=== PATIENT | female | born 1985 | race Caucasian/White ===

== ENCOUNTER 2016-05-28 03:36 | Inpatient (IN) | payer OTHER ==
[~2016-05-28] VITALS: Ht 165.1 cm; Wt 104.0 kg
[~2016-05-28 03:36] MED LIST: IBUP600T44 PO
[2016-05-31 08:42] VITALS: Ht 165.1 cm; Wt 104.0 kg
--- NOTE | 2016-05-31 09:32 | HISTORY & PHYSICAL EXAMINATION ---
DATE OF ADMISSION: 05/31/2016 CHIEF COMPLAINT: Scheduled induction of labor. HISTORY OF PRESENT ILLNESS: The patient is a 31-year-old G3, P2-0-0-2 at 40 weeks and 3 days of gestation who is presenting today for scheduled induction of labor for postdates. She has been feeling mild contractions since this morning. They have been every 2-4 minutes . She rates the pain 2/10. No leakage of fluid or vaginal bleeding. She reports good movements. She denies headache, change in vision, nausea or vomiting. Her has been uncomplicated except obesity. PAST MEDICAL HISTORY: Unremarkable, migraines. PAST SURGICAL HISTORY: Left lower leg surgery in 2009. SOCIAL HISTORY: The patient denies smoking, alcohol or drug use. GYNECOLOGIC HISTORY: The patient has a history of chlamydia 9 years ago, none since then. No history of herpes or gonorrhea. OBSTETRICAL HISTORY: This is her third . She had spontaneous vaginal delivery in 2011 and 2013. Both were uncomplicated. MEDICATIONS: vitamins. ALLERGIES: No known drug allergies. LABS: Blood type is O positive, antibody screen negative, rubella positive, RPR nonreactive, hepatitis B surface antigen negative, chlamydia and gonorrhea cultures were negative. Glucola was 110 mg per deciliter. H\T\H is 12/35, platelets 157. GBS culture was negative on 05/01/2016. PHYSICAL EXAMINATION: GENERAL: The patient is alert, oriented x3, not in acute distress. VITAL SIGNS: Stable. Afebrile. CARDIOVASCULAR SYSTEM: S1, S2, RRR. LUNGS: Clear to auscultation bilaterally. ABDOMEN: Soft, gravid, [place] 8-9 pounds. EXTREMITIES: Nontender, no edema. PELVIC EXAMINATION: Her cervix is 1-2 cm on the external os, internal os unreachable, thick, posterior and -5. Unable to feel presenting part. Bedside ultrasound was done and confirmed vertex presentation. heart rate 140s, category 1. [place] mild contractions every 3-4 minutes. ASSESSMENT AND PLAN: The patient is a 31-year-old G3, P2-0-0-2 at 40 weeks and 3 days of gestation presenting for scheduled induction of labor for postdates. Vital signs stable, afebrile. GBS negative. No medical problems. heart rate reassuring. Plan is admit her, start IV fluids and cervical ripening with Cervidil. She understands the risks and benefits of using prostaglandins and all questions were answered. LIZA
[2016-05-31 09:37] LABS: HEMATOCRIT 38.7 % (37-47); MEAN CORPUSCULAR HEMOGLOBIN 29.3 pg (25-34); MEAN CORPUSCULAR HGB CONC 33.3 g/dl (32-36); MEAN PLATELET VOLUME 9.9 fL (7.4-10.4); PLATELET COUNT 140 K/uL (130-400)
[2016-05-31] MEDS ORDERED: LACTATED RINGER'S 1000ML 1,000 ML IV PRN (09:45)
[2016-05-31] MEDS ORDERED: DINOPROSTONE 10 MG INSERT PV ONE (09:45)
[2016-05-31] MEDS ORDERED: EpHEDrine SULFATE INJ 50 MG/ML AMP ONE (16:28)
[2016-05-31] MEDS ORDERED: BUPIVACAINE 0.25% 30 ML VIAL ONE (16:28)
[2016-05-31] MEDS ORDERED: FENTANYL 2MCG/ML ROPIV 1.25MG/ML 100ML BAG EPI ONE (16:29)
[2016-05-31] MEDS ORDERED: FENTANYL CITRATE INJ 50 MCG/1 ML 2 ML VIAL ONE (16:30)
[2016-05-31] MEDS ORDERED: LACTATED RINGER'S 1000ML 500 ML IV PRN (17:24)
[2016-05-31] MEDS ORDERED: NALOXONE HCL INJ 1 MG in SODIUM CHLORIDE 0.9% 1000ML 1,000 ML IV PRN (17:24)
[2016-05-31] MEDS: LACTATED RINGER'S 1000ML 1,000 ML IV SCH ×2 (17:28→21:50)
[2016-05-31] MEDS ORDERED: NALBUPHINE HCL INJ 10 MG/ML AMP IV PRN (17:30)
[2016-05-31] MEDS ORDERED: NALOXONE HCL 0.4 MG/1 ML VIAL/CARP IV PRN (17:30)
[2016-05-31] MEDS ORDERED: DiphenhydrAMINE HCL 50 MG/ML VIAL IV PRN (17:30)
[2016-05-31] MEDS ORDERED: EpHEDrine SULFATE INJ 50 MG/ML AMP IV PRN (17:30)
[2016-05-31] MEDS ORDERED: FENTANYL 2MCG/ML ROPIV 1.25MG/ML 100ML BAG EPI PRN (17:30)
[2016-05-31] MEDS ORDERED: OXYTOCIN 30 UNITS/500ML NSS IV ONE (22:24)
[2016-05-31] MEDS ORDERED: DIPHTHERIA/TETANUS/PERTUSSIS 0.5 ML SYR/VIAL IM. ONE (23:15)
[2016-05-31] MEDS ORDERED: OXYCODONE/ACETAMINOPHEN 5-325 TAB PO PRN (23:15)
[2016-05-31] MEDS ORDERED: HYDROCORTISONE ACETATE 25 MG SUPP PR PRN (23:15)
[2016-05-31] MEDS ORDERED: LANOLIN OINT EXT PRN ×2 (23:15)
[2016-05-31] MEDS ORDERED: OXYTOCIN 30 UNITS/500ML NSS IV PRN (23:15)
[2016-05-31] MEDS ORDERED: ACETAMINOPHEN 325 MG TAB PO PRN (23:15)
[2016-05-31] MEDS ORDERED: BENZOCAINE 20% AER SPR 82.5 GM CAN EXT PRN (23:15)
[2016-05-31] MEDS ORDERED: SUPERCREAM 0.870 % 15GM JAR EXT PRN (23:15)
[2016-05-31] MEDS ORDERED: ACETAMINOPHEN/CODEINE 300/30MG TAB PO PRN (23:15)
--- NOTE | 2016-06-01 00:11 | Anesthesia Procedure Note ---
Anesthesia Epidural Removal Nt Date & Time Jun 01, 2016 at 00:10 Vital Signs Pain Intensity: 3.0 Notes Mental Status: alert / awake / arousable, participated in evaluation Nausea / Vomiting: adequately controlled Pain: adequately controlled Airway Patency, RR, SpO2: stable & adequate BP & HR: stable & adequate Hydration State: stable & adequate Neuraxial Anesthesia: was administered, sensory block is resolving Anesthetic Complications: no major complications apparent, pt satisfied with anesthetic care Epidural: removed without complications, with tip intact
--- NOTE | 2016-06-01 02:28 | DELIVERY SUMMARY ---
DATE OF OPERATION: 05/31/2016 TIME OF DELIVERY: 2256 DELIVERY OF PLACENTA: 2300 DELIVERY NOTE: The patient is a 31-year-old 3 para 2 at 40 weeks and 3 days gestation, who was admitted to labor and delivery on the morning of 05/31/2016, for a scheduled induction of labor secondary to postdates. She received Cervidil on admission along with an epidural for anesthesia. Spontaneous rupture of membranes occurred at 0 with clear amniotic fluid noted. She reached complete dilation at 2212 and pushed to delivery at 2256. The patient delivered a viable male in the occiput anterior position. Nuchal cord x1 was reduced at delivery. The baby was delivered without complication and was placed on patient's abdomen. Delayed cord clamping was performed. Cord was then clamped x2 and cut. Apgars were 8 at one minute and 9 at five minutes. Please see nursing notes for further baby assessment. Cord blood was then obtained and an intact placenta with a 3-vessel cord was delivered at 2300. Oxytocin infusion was then begun. The lower uterine segment and vagina was cleared of any blood clot and debris. Exploration of the perineum noted no lacerations. Excellent hemostasis was noted. Estimated blood loss was 300 mL. All sponge and instrument counts were found to be correct x2. The patient tolerated the delivery well and was in recovery with stable vital signs. I attest to the content of the Intraoperative Record and any orders documented therein. Any exceptio ns are noted below.
[2016-06-01 02:30] VITALS: BP 137/81; PULSE 105; TEMP 36.9
[2016-06-01 05:20] VITALS: BP 126/79; PULSE 87; TEMP 36.9
[2016-06-01] MEDS: IBUPROFEN 600 MG TAB PO PRN ×2 (05:23→12:42)
[2016-06-01 07:00] LABS: HEMATOCRIT 34.6 % (37-47)
[2016-06-01 07:35] VITALS: BP 114/78; PULSE 89; TEMP 36.7
[2016-06-01] MEDS: ACETAMINOPHEN/CODEINE 300/30MG TAB PO PRN (07:42)
[2016-06-01] MEDS: PRENATAL VITAMIN TAB PO SCH (07:42)
[2016-06-01] MEDS: DOCUSATE SODIUM 100 MG CAP PO SCH ×2 (07:42→19:43)
[2016-06-01] MEDS: FERROUS SULFATE 325 MG TAB PO SCH (07:42)
--- NOTE | 2016-06-01 08:56 | OB/GYN Progress Note ---
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 Patient is seen and examined. She feels well, no complaints. Ambulating without dizziness Voiding without difficulty Tolerating regular diet with out N&V Bleeding is minimal No fever/ chills/ CP/ SOB/ N&V/ Leg pain Breast feeding without problems Date Time Temp Pulse Resp B/P Pulse Ox O2 Delivery O2 Flow Rate FiO2 06/01/16 05:20 36.9 87 20 126/79 Room Air 06/01/16 02:30 Room Air 06/01/16 02:30 36.9 105 20 137/81 Room Air Test 05/31/16 09:20 06/01/16 06:32 White Blood Count 10.50 Red Blood Count 4.40 Hemoglobin 12.9 11.8 L Hematocrit 38.7 34.6 L Mean Corpuscular Volume 88.0 Mean Corpuscular Hemoglobin 29.3 Mean Corpuscular Hemoglobin Concent 33.3 RDW Standard Deviation 45.2 RDW Coefficient of Variation 14.1 Platelet Count 140 Mean Platelet Volume 9.9 PE: General: Alert, orientedx3, NAD Abd: soft, NT, fundus firm, below Umbilicus Perineum intact, Lochia rubra minimal Ext; NT, no edema AP: 31 yo s/p , ppd# 1 VSS Afebrile doing well Continue routine care All questions were answered D/C home tomorrow
[2016-06-01 12:30] VITALS: BP 114/79; PULSE 96
[2016-06-01 16:30] VITALS: BP 115/78; PULSE 89; TEMP 36.7
[2016-06-01] MEDS ORDERED: BISACODYL 5 MG TABEC PO SCH (20:00)
[2016-06-02] VITALS: BP 119/76; PULSE 69; TEMP 36.4
[2016-06-02] MEDS: IBUPROFEN 600 MG TAB PO PRN (05:31)
[2016-06-02] MEDS: ACETAMINOPHEN/CODEINE 300/30MG TAB PO PRN (05:31)
[2016-06-02] MEDS ORDERED: BISACODYL 10 MG SUPP PR PRN (07:00)
[2016-06-02 07:22] LABS: HEMATOCRIT 34.5 % (37-47); MEAN CELL VOLUME 89.8 fL (80-100); MEAN CORPUSCULAR HEMOGLOBIN 30.2 pg (25-34); MEAN CORPUSCULAR HGB CONC 33.6 g/dl (32-36); MEAN PLATELET VOLUME 10.2 fL (7.4-10.4); PLATELET COUNT 119 K/uL (130-400); RED BLOOD COUNT 3.84 M/uL (4.2-5.4); WHITE BLOOD COUNT 8.21 K/uL (4.8-10.8)
[2016-06-02 07:40] VITALS: BP 112/70; PULSE 77; TEMP 36.8; O2SAT 97
--- NOTE | 2016-06-02 07:46 | OB/GYN Progress Note ---
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 Patient is seen and examined. She feels well, no complaints. Likes to go home Ambulating without dizziness Voiding without difficulty Tolerating regular diet with out N&V Bleeding is minimal No fever/ chills/ CP/ SOB/ N&V/ Leg pain Breast feeding without problems Discussed contraception. Her is going to get vasectomy. They will use +condoms till then. Date Time Temp Pulse Resp B/P Pulse Ox O2 Delivery O2 Flow Rate FiO2 06/02/16 00:00 Room Air 06/02/16 00:00 36.4 69 20 119/76 Room Air 06/01/16 16:30 Room Air 06/01/16 16:30 36.7 89 18 115/78 Room Air 06/01/16 12:30 96 18 114/79 Room Air Test 05/31/16 09:20 06/01/16 06:32 06/02/16 07:04 White Blood Count 10.50 8.21 Red Blood Count 4.40 3.84 L Hemoglobin 12.9 11.8 L 11.6 L Hematocrit 38.7 34.6 L 34.5 L Mean Corpuscular Volume 88.0 89.8 Mean Corpuscular Hemoglobin 29.3 30.2 Mean Corpuscular Hemoglobin Concent 33.3 33.6 RDW Standard Deviation 45.2 47.2 H RDW Coefficient of Variation 14.1 14.4 Platelet Count 140 119 L Mean Platelet Volume 9.9 10.2 PE: General: Alert, orientedx3, NAD Abd: soft, NT, fundus firm, below Umbilicus Perineum intact, Lochia rubra minimal Ext; NT, no edema AP: 31 yo s/p , ppd# 2 VSS Afebrile doing well Continue routine care All questions were answered Instructions were given when to call D/C home , f/u in office
[2016-06-02] MEDS ORDERED: MTR600X PO (07:47)
--- NOTE | 2016-06-02 07:48 | Discharge Instructions ---
Discharge Instructions Date of Service Jun 02, 2016. Admission Reason for Admission: Induction Discharge Discharge Diagnosis / Problem: Discharge Goals Goal(s): Routine recovery after delivery Medications Continue Dispensed Medications: lansinoh Activity Recommendations Activity Limitations: as noted below Lifting Limitations: gradually increase as tolerated Exercise/Sports Limitations: until after follow-up appointment May Resume Sexual Activity: after follow-up appointment Shower/Bathe: no limitations Driving or Machine Use: ACTIVITY RECOMMENDATIONS: * Gradual return to full activity over the next 2-3 weeks. * No lifting - nothing heavier than baby over the next 2-3 weeks. * Do not engage in vigorous exercise, sexual activity or sports until cleared by your physician. * Do not drive or operate any motorized equipment until cleared by your physician. * You may shower/bathe daily. BREAST CARE: If you are not breast feeding: * Wear a supportive bra 24 hours a day for one to two weeks. * Avoid stimulating your breasts and nipples as much as possible during the first few weeks after delivery. * When taking a shower, have the warm water hit your back, not breasts. * When your breasts feel full, apply ice packs. Usually three to four times a day helps ease the discomfort. * Take a mild pain medication (Tylenol/Motrin) when you are uncomfortable. If breast feeding: * Use breast milk to lubricate nipples. Lansinoh cream may be used for sore nipples. You do not need to remove cream prior to breast feeding. If using a different brand of cream, check the label for directions regarding removal of cream prior to nursing. * Wear a supportive bra. * If having problems with breasts or breast feeding, call a product/industry consultant or your health care provider. EPISIOTOMY CARE: After delivery, if you have an episiotomy (stitches), the following steps will ease discomfort and aid healing. * For the first 24 hours after delivery, place ice packs next to your episiotomy to help reduce swelling. * After the first 24 hour-period, sitz baths, either portable or in the tub, are suggested. A shower with a shower arm sprayed over the episiotomy may be comforting. * Mena care should be done after each voiding and bowel movement. Squirt warm water from a plastic bottle over the perineum (region of the body between the anus and urinary opening) and pat dry. * Use Dermoplast to ease discomfort. Shake container. [place] directly over the episiotomy. * Place a Tucks on a clean sanitary pad next to your episiotomy. OVER THE COUNTER MEDICATION: * For discomfort or pain, you may use Acetaminophen (Tylenol), Ibuprofen (Advil ), or Naproxen (Aleve) following the package directions. * For constipation you may use Colace following the package directions. SPECIAL CARE INSTRUCTIONS: When you are discharged from the hospital, it is important for you to follow the instructions listed below: * During the first week at home, you should be able to care for yourself and your baby. In addition, the usual light household activities are encouraged. * Limit your activities to the way you feel. Do not try to clean the house or move furniture. Be sensible. * If you actively engage in sports and have done so up until the time of your delivery, you may resume these activities as soon as you feel able. This may take up to one month or even longer. Use good judgment. * Continue to take your vitamins for at least six weeks after the of your baby. * Your diet need not be limited unless you were on a special diet before your delivery. Breast-feeding mothers need around 2500 calories per day and at least 64-80 ounces of fluid per day (8 to 10 glasses). * You should eat foods from the four major food groups. Crash diets or fad diets are to be avoided. Eating lean meats, fresh fruits and vegetables, low-fat dairy products, high fiber foods and a regular exercise program, will help you get back to your pre- weight without putting your health at risk. * Constipation is sometimes a problem after delivery. Take a mild laxative as needed. If breast feeding, Milk of Magnesia is acceptable to use. You may use a suppository or Fleets enema if no episiotomy. * A daily shower or tub bath is suggested. Be sure to thoroughly and gently dry the perineum. * A bloody vaginal discharge will usually continue until around four weeks post . A small amount of bleeding may continue for as long as six weeks. Vaginal discharge changes from the bright red bleeding after delivery to pink then brownish and finally yellowish-pink before becoming white and disappearing. * Bleeding may increase with activity. Your first period may come in 4-8 weeks. If you are breast feeding, your period may be delayed even longer. * [place] (sex) can begin whenever both you and your partner feel comfortable and do not have any form of genital infection. It is recommended that you wait until after your return appointment and discuss with your physician. If you have questions, please talk to your health care practitioner. A condom should be used to prevent infection and . * Foreplay, gentle intercourse and lubrication is very important the first several times to prevent pain. A water-based lubricant such as K-Y jelly or Astroglide may be used. * Tampons may be used six weeks after delivery. * Douching should be avoided for 6 weeks after delivery. * If you have RH negative blood and your baby is RH positive, you will receive RHOGAM by injection prior to discharge. The nurse will give you a card to keep with you that has the date and place that you received RHOGAM after delivery. * During your care, you had a Rubella screen done to check for the presence of rubella antibodies in your blood. If your test was negative, you will receive a Rubella vaccine prior to discharge. This vaccine may cause a fever, soreness at the injection site and flu-like symptoms. If these symptoms persist, notify your health care practitioner. is not advised for three months after a Rubella vaccine. There is a higher chance of having a baby with defects if conceived within three months of getting the vaccine. * If you were discharged 24 hours from delivery or before 48 hours: Visiting nurses will come to your home 48 hours after discharge to assess you and your baby. The visiting nurse will meet with you while you are in the hospital to arrange a time and get directions to your home. * Verbalizes understanding of car seat law as reviewed with patient nursing. * Car Seat hand-out given and reviewed with patient by nursing. * Shaken baby information reviewed with patient by nursing. Call you doctor if: * Heavy bleeding (saturating several pads an hour) or passing clots the size of your fist. * A fever >101 degrees F (38.3 degrees C) on two occasions four hours apart and/or chills. * Unusual pain in the pelvic or vaginal areas. * "Baby Blues" lasting longer than two weeks. If you have any questions or concerns, call your health care practitioner at . FOLLOW-UP VISIT: * Please call the office at to schedule a 6 week examination. It is important you keep this appointment. * It is important for you to make arrangements for either yearly or twice yearly check-ups thereafter. . Current Hospital Diet Patient's current hospital diet: Regular OB Diet Discharge Diet Recommended Diet: Regular Diet Pending Studies Studies pending at discharge: no Medical Emergencies . Who to Call and When: Medical Emergencies: If at any time you feel your situation is an emergency, please call 911 immediately. . Non-Emergent Contact Non-Emergency issues call your: Surgeon Call Non-Emergent contact if: temperature is above 100.5, your pain is not controlled, your pain is worsening, wound has increased drainage . . "Provider Documentation" section prepared by Mireya Mayo. . VTE Core Measure Inpt VTE Proph given/why not?: Treatment not indicated
[2016-06-02] MEDS: DOCUSATE SODIUM 100 MG CAP PO SCH (08:34)
[2016-06-02] MEDS: PRENATAL VITAMIN TAB PO SCH (08:35)
[2016-06-02] MEDS: FERROUS SULFATE 325 MG TAB PO SCH (08:35)
[2016-06-02 12:55] VITALS: BP_DIAS 70; PULSE 77; TEMP 36.8
== END 2016-06-02 13:08 | disposition home or self-care (01) | DRG 775 ==
LOC: C.LD 05-31 07:37 → C.OBG 06-01 02:06
PROVIDERS: ADMIT Obstetrics & Gynecology; ATTEND Obstetrics & Gynecology
PROC: 10E0XZZ Delivery of Products of Conception, External Approach (ICD-10-PCS; principal; 2016-05-31)
PROC: 3E033VJ Introduction of Other Hormone into Peripheral Vein, Percutaneous Approach (ICD-10-PCS; principal; 2016-05-31)
DX: O48.0 Post-term pregnancy (principal); Z3A.40 40 weeks gestation of pregnancy; Z37.0 Single live birth; O69.82X0 Labor and delivery complicated by other cord entanglement, without compression, not applicable or unspecified

== ENCOUNTER 2022-02-14 13:38 | Inpatient (IN) ==
[2022-02-14] MEDS ORDERED: DINOPROSTONE 10 MG INSERT PV ONE (14:54)
[2022-02-14] MEDS ORDERED: OXYTOCIN 30 UNITS/500 ML BAG IV PRN (14:54)
[2022-02-14] MEDS ORDERED: LIDOCAINE 1% LOCAL 20 ML VIAL INFIL PRN (14:54)
--- NOTE | 2022-02-14 15:07 | History & Physical Report ---
Date of Service February 14, 2022 Assessment & Plan (1) Gestational diabetes requiring insulin: Plan: 36-year-old -0-0-3 at 39 weeks and 1 day gestation who was scheduled for induction of labor at term for GDM A2, on insulin, Vital signs stable afebrile, heart rate reassuring, GBS negative, Cervix unfavorable presenting part high, confirmed vertex with ultrasound, Discussed cervical ripening with Cervidil and what to expect, All questions were answered. (2) Obesity affecting in third trimester, antepartum: Admission and Anticipated Discharge Date Admission Date: February 14, 2022 History of Present Illness Primary Care Provider: [facility] Patient is an 36-year-old -0-0-3 at 39 weeks and 1 days of gestation who was scheduled for induction at term for GDM A2, on insulin. She has no complaints. She denies contractions, leakage of fluid, vaginal bleeding. She reports good movements. Her has been uncomplicated except above and obesity. GBS negative. Last growth ultrasound was within normal limits. 3470 gr on 01/30 done by OSORIO. 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 Remote h/o Chlamydia 12 years ago, treated ELLIE negative Physical Exam Constitutional: well developed, well nourished and + obese Gastrointestinal (Abdomen): normal bowel sounds, soft, nontender, no hepatosplenomegaly (gravid) bed side us: vertex, FHR 140's Genitourinary: normal external appearance OB Exam Abdomen: + vertex Manual OB Exam: + cervical dilation fingertip, + cervical effacement 30% and + station high OB Exam Monitor Tracing: + external uterine monitor used and + category I Results & Data ([facility]) Vital Signs (Past 12 Hours) Vital Signs Temp Pulse Resp BP 02/14/22 14:47 92 H 119/77 02/14/22 14:21 37.3 C 94 H 20 144/83 H
[2022-02-14 15:19] LABS: Hematocrit (blood only) 32.3 % (34.1-44.9); Hemoglobin 11.1 g/dl (12.0-16.0); Mean Corpuscular Hemoglobin 28.2 pg (25.0-34.0); Mean Corpuscular Hgb Conc 34.4 g/dL (32.0-36.0); Mean Corpuscular Volume 82.2 fL (80.0-100.0); Mean Platelet Volume 9.5 fL (9.4-12.3); Platelet Count 143 K/uL (130-400); RDW Coefficient of Variation 14.6 % (11.5-14.5); RDW Standard Deviation 43.1 fL (36.4-46.3); Red Blood Count 3.93 M/uL (3.93-5.22); White Blood Count 7.07 K/ul (4.8-10.8)
[2022-02-14 15:38] LABS: Alanine Aminotransferase 8 U/L (7-52); Albumin Globulin Ratio 1.3 (0.9-2); Albumin Level 3.4 gm/dl (3.4-5.0); Alkaline Phosphatase 111 U/L (34-104); Anion Gap 7 (3-11); Aspartate Aminotransferase 11 U/L (13-39); BUN Creatinine Ratio 12.8 (10-20); Bilirubin,Total 0.3 mg/dl (0.2-1.0); Blood Urea Nitrogen 6 mg/dl (6-23); Calcium 8.4 mg/dl (8.5-10.1); Carbon Dioxide 21 mmol/L (21-32); Chloride 108 mmol/L (98-107); Est GFR (African American) 149.4 ml/min; Est GFR (Non-African American) 128.9 ml/min; Globulin 2.6 gm/dl (2.5-4.0); Glucose 118 mg/dl (70-99(Fasting)); Potassium 3.7 mmol/L (3.5-5.1); Sodium 136 mmol/L (136-145)
[2022-02-14] MEDS: LACTATED RINGER'S 1,000 ML IV PRN ×2 (18:46→21:05)
--- NOTE | 2022-02-14 20:35 | Obstetrical Progress Note ---
Date of Service February 14, 2022 Assessment & Plan Admission and Anticipated Discharge Date Admission Date: February 14, 2022 Subjective Patient started to have regular ctxs, q 1-2 min, feesl them as uncomfortable, pain 5/10 IVF bolus did not help FHR categ I VE; Cervidil is removed, cervix 2 cm/ 30%/ -4, posterior Continue to monitor Results & Data ([facility]) Vital Signs (Past 12 Hours) Vital Signs Temp Pulse Resp BP 02/14/22 19:08 37.2 C 86 18 122/80 02/14/22 18:24 18 02/14/22 18:24 18 02/14/22 14:47 92 H 119/77 02/14/22 14:21 37.3 C 94 H 20 144/83 H
[2022-02-14] MEDS ORDERED: BUTORPHANOL TARTRATE 1 MG/ML VIAL IV PRN (20:53)
[2022-02-15] MEDS: miSOPROStoL 50 MCG TAB PO SCH ×3 (03:20→08:07)
[2022-02-15] MEDS ORDERED: OXYTOCIN 30 UNITS/500 ML BAG IV PRN ×2 (10:14→16:05)
[2022-02-15] MEDS ORDERED: Nursing to Pharmacy Communication SCH (10:30)
[2022-02-15] MEDS: LACTATED RINGER'S 1,000 ML IV PRN ×2 (10:50→14:30)
[2022-02-15] MEDS ORDERED: LIDOCAINE 2%/EPINEPHRINE 1:200,000 20 ML SDV ONE (11:14)
[2022-02-15] MEDS ORDERED: fentaNYL citrate 100 MCG/2 ML VIAL ONE (11:14)
[2022-02-15] MEDS ORDERED: fentaNYL 2MCG/ML ROPIVACAINE 1.25MG/ML 100 ML BAG EPI ONE (11:14)
[2022-02-15] MEDS ORDERED: BUPIVACAINE 0.25% 30 ML VIAL ONE (11:14)
[2022-02-15] MEDS ORDERED: SODIUM CHLORIDE 0.9% INJ 10 ML VIAL ONE (11:14)
[2022-02-15] MEDS ORDERED: ePHEDrine sulfate 50 MG/ML AMP ONE (11:14)
--- NOTE | 2022-02-15 11:17 | Anesthesiology Consultation ---
Date of Service February 15, 2022 Assessment & Plan (1) Encounter for pre-operative examination: Chart Review Chart Review: Patient NOT seen in Pre Admission Testing and Acceptable Risk for Labor Epidural Consults Requested none History Height/Weight Height: 5 ft 5 in Weight: 108.409 kg Allergies Allergy/AdvReac Type Severity Reaction Status Date / Time No Known Allergies Allergy Unverified 02/14/22 14:25 Medications Home Medications Medication Instructions Recorded Confirmed Last Taken prenat.vits,jacky,vcs-eggs-[id number] 1 tab PO DAILY 02/14/22 02/14/22 Unknown Active Medications Generic Name Dose Route Start Last Admin Trade Name Freq PRN Reason Stop Dose Admin Lactated Ringer's 1,000 mls @ 150 mls/hr 02/14/22 14:54 02/15/22 10:50 Lr IV 02/16/22 14:53 150 mls/hr .[id number] PRN Administration L&D Protocol Protocol Oxytocin 30 units in 500 mls @ 2 mls/hr 02/15/22 10:14 02/15/22 10:51 Pitocin IV 02/17/22 10:13 0.12 units/hr .Q24H PRN 2 mls/hr Labor Induction/Augmentation Administration Protocol 0.12 UNITS/HR Past Medical History Medical History Fracture of left lower leg 2009 Gestational diabetes mellitus (GDM) Migraine Normal spontaneous vaginal delivery 05/31/16 Normal spontaneous vaginal delivery 09/02/13 Normal spontaneous vaginal delivery 05/10/11 Obesity affecting in third trimester, antepartum Past Family History Family History Grandmother (Maternal) Diabetes Grandfather (Maternal) Hypertension Father Hypertension Hyperlipidemia Ascending aortic aneurysm Mother Asthma Social History Smoking Status: Former smoker Hx Alcohol Use: No Hx Substance Use: No Physical Exam Vital Signs Last Vital Signs Temp 98.8 F 02/15/22 10:52 Pulse 81 02/15/22 10:52 Resp 20 02/15/22 10:52 BP 113/61 02/15/22 10:52 Testing Laboratory Results 02/14/22 15:04 02/14/22 15:04 Blood Type O Positive 02/14/22 15:08 Antibody Screen NEGATIVE 02/14/22 15:08 02/15/22 02/15/22 02/15/22 09:03 05:02 00:19 POC Glucose 123 H 77 76
[2022-02-15] MEDS ORDERED: ePHEDrine sulfate 50 MG/ML AMP IV PRN (11:19)
[2022-02-15] MEDS ORDERED: NALOXONE HCL 1 MG in SODIUM CHLORIDE 0.9% 1000ML 1,000 ML IV PRN (11:19)
[2022-02-15] MEDS ORDERED: fentaNYL 2MCG/ML ROPIVACAINE 1.25MG/ML 100 ML BAG EPI PRN (11:19)
[2022-02-15] MEDS ORDERED: NALBUPHINE HCL INJ 10 MG/ML AMP IV PRN (11:19)
[2022-02-15] MEDS ORDERED: diphenhydrAMINE 50 MG/ML VIAL IV PRN (11:19)
[2022-02-15] MEDS ORDERED: NALOXONE HCL 0.4 MG/1 ML VIAL/CARP IV PRN (11:19)
[2022-02-15] MEDS ORDERED: miSOPROStoL 200 MCG TAB ONE (15:41)
[2022-02-15] MEDS ORDERED: METHYLERGONOVINE MALEATE 0.2 MG/ML AMP ONE (15:42)
--- NOTE | 2022-02-15 15:43 | Labor Progress Brief Note ---
Date of Service February 15, 2022 Assessment & Plan (1) Gestational diabetes requiring insulin: Plan: Pt doing well FHr; CAT1 Ctx: 2-3 mins VE; 9/100/=1 AROM with Amnio hook- clear anticipate VD Admission and Anticipated Discharge Date Admission Date: February 14, 2022 Results & Data ([facility]) Vital Signs (Past 12 Hours) Vital Signs Temp Pulse Resp BP Pulse Ox 02/15/22 15:39 82 99 02/15/22 15:34 81 98 02/15/22 15:29 99 H 98 02/15/22 15:24 76 96 02/15/22 15:19 97 02/15/22 15:19 83 02/15/22 15:19 76 109/73 02/15/22 15:14 76 95 02/15/22 15:09 75 97 02/15/22 15:00 20 02/15/22 15:00 20 02/15/22 14:30 20 02/15/22 14:30 20 02/15/22 15:06 75 102/69 02/15/22 15:04 78 97 02/15/22 14:59 83 97 02/15/22 14:54 80 96 02/15/22 14:49 97 02/15/22 14:49 81 02/15/22 14:49 82 117/79 02/15/22 14:44 80 96 02/15/22 14:39 75 96 02/15/22 14:34 78 112/73 96 02/15/22 14:29 83 97 02/15/22 14:26 76 94 02/15/22 14:24 75 96 02/15/22 14:21 83 94 02/15/22 14:19 96 02/15/22 14:19 76 02/15/22 14:19 80 112/70 02/15/22 14:14 80 95 02/15/22 14:11 80 94 02/15/22 14:09 77 94 02/15/22 14:00 20 02/15/22 14:00 20 02/15/22 14:04 77 114/79 97 02/15/22 13:59 81 96 02/15/22 13:54 82 95 02/15/22 13:51 73 94 02/15/22 13:49 76 95 02/15/22 13:50 75 107/72 02/15/22 13:44 78 96 02/15/22 13:30 20 02/15/22 13:30 36.8 C 20 02/15/22 13:39 75 97 02/15/22 13:36 86 93 02/15/22 13:35 75 114/75 02/15/22 13:34 74 96 02/15/22 13:29 75 95 02/15/22 13:26 80 94 02/15/22 13:24 79 95 02/15/22 13:21 80 108/63 02/15/22 13:19 81 96 02/15/22 13:17 85 94 02/15/22 13:14 78 93 02/15/22 13:12 79 94 02/15/22 13:09 76 95 02/15/22 13:04 87 110/64 96 02/15/22 12:59 80 97 02/15/22 12:54 88 97 02/15/22 12:49 96 02/15/22 12:49 84 02/15/22 12:49 85 109/67 02/15/22 12:46 78 94 02/15/22 12:44 79 94 02/15/22 12:39 75 96 02/15/22 12:40 74 94 02/15/22 12:34 82 107/66 96 02/15/22 12:30 20 02/15/22 12:30 20 02/15/22 12:29 81 97 02/15/22 12:24 82 96 02/15/22 12:20 75 111/67 02/15/22 12:15 18 02/15/22 12:15 18 02/15/22 12:19 75 95 02/15/22 12:14 96 02/15/22 12:14 83 02/15/22 12:14 78 94 02/15/22 12:09 77 96 02/15/22 12:04 98 02/15/22 12:04 81 02/15/22 12:04 90 132/82 02/15/22 12:00 20 02/15/22 12:00 20 02/15/22 11:59 81 120/72 97 02/15/22 11:54 84 96 02/15/22 11:53 82 124/72 02/15/22 11:51 83 117/68 02/15/22 11:49 86 20 119/66 96 02/15/22 11:47 85 118/68 02/15/22 11:44 86 96 02/15/22 11:45 83 126/73 02/15/22 11:43 89 116/72 02/15/22 11:41 89 123/74 02/15/22 11:40 20 02/15/22 11:40 20 02/15/22 11:39 98 02/15/22 11:39 85 02/15/22 11:39 81 114/69 02/15/22 11:33 86 98 02/15/22 11:28 101 H 99 02/15/22 11:23 86 98 02/15/22 10:52 37.1 C 81 20 113/61 02/15/22 07:30 37.2 C 77 20 108/76 02/15/22 05:05 36.7 C 84 17 116/80
[2022-02-15] MEDS ORDERED: DIPHTHERIA/TETANUS/PERTUSSIS 0.5mL SYR/VIAL (Age 7+yrs) IM ONE (16:05)
[2022-02-15] MEDS ORDERED: bisacodyL 10 MG SUPP PR PRN (16:05)
[2022-02-15] MEDS ORDERED: METHYLERGONOVINE MALEATE 0.2 MG/ML AMP IM ONE (16:05)
[2022-02-15] MEDS ORDERED: ACETAMINOPHEN 325 MG TAB PO PRN (16:05)
[2022-02-15] MEDS ORDERED: HYDROCORTISONE ACETATE 25 MG SUPP PR PRN (16:05)
[2022-02-15] MEDS ORDERED: miSOPROStoL 200 MCG TAB PR ONE (16:05)
[2022-02-15] MEDS ORDERED: BENZOCAINE 20% AER SPR 82.5 GM CAN EXT PRN (16:05)
[2022-02-15] MEDS: OXYTOCIN 20 UNITS in LACTATED RINGER'S 1,000 ML IV SCH (16:46)
--- NOTE | 2022-02-15 17:33 | Anesthesia Procedure Note ---
Date of Service February 15, 2022 Anesthesia Post Epidural Note Vital Signs Vital Signs: Temp Pulse Resp BP Pulse Ox 98.2 F 64 20 125/83 96 02/15/22 13:30 02/15/22 17:11 02/15/22 17:04 02/15/22 17:11 02/15/22 16:04 Pain Intensity Bilateral Abdomen: Pain Intensity: 0 Notes Mental Status: alert / awake / arousable and participated in evaluation Nausea / Vomiting: adequately controlled Pain: adequately controlled Airway Patency, RR, SpO2: stable & adequate BP & HR: stable & adequate Hydration State: stable & adequate Neuraxial Anesthesia: was administered and sensory block is resolving Anesthetic Complications: no major complications apparent and Pt Satisfied with anesthetic care Epidural: Removed without complications and With tip intact
--- NOTE | 2022-02-15 18:28 | Anesthesia Procedure Note ---
Date of Service February 15, 2022 Anesthesia Post Epidural Note Vital Signs Vital Signs: Temp Pulse Resp BP Pulse Ox 37.4 C 71 20 118/57 L 96 02/15/22 18:04 02/15/22 18:19 02/15/22 18:04 02/15/22 18:19 02/15/22 16:04 Pain Intensity Bilateral Abdomen: Pain Intensity: 1 Notes Mental Status: alert / awake / arousable and participated in evaluation Patient Amnestic to Procedure: Yes Nausea / Vomiting: adequately controlled Pain: adequately controlled Airway Patency, RR, SpO2: stable & adequate BP & HR: stable & adequate Hydration State: stable & adequate Neuraxial Anesthesia: sensory block resolved Anesthetic Complications: Pt Satisfied with anesthetic care Epidural: Removed without complications and With tip intact
[2022-02-15] MEDS: IBUPROFEN 600 MG TAB PO PRN (20:28)
[2022-02-15] MEDS: DOCUSATE SODIUM 100 MG CAP PO SCH (20:28)
[2022-02-16] MEDS: OXYTOCIN 20 UNITS in LACTATED RINGER'S 1,000 ML IV SCH (02:29)
[2022-02-16] MEDS: IBUPROFEN 600 MG TAB PO PRN ×2 (03:16→15:05)
[2022-02-16] MEDS: DOCUSATE SODIUM 100 MG CAP PO SCH ×3 (08:32→21:45)
[2022-02-16] MEDS: PRENATAL VITAMIN 1 TAB PO SCH (08:32)
[2022-02-16 09:19] LABS: Hematocrit (blood only) 33.3 % (34.1-44.9); Hemoglobin 11.4 g/dl (12.0-16.0); Mean Corpuscular Hgb Conc 34.2 g/dL (32.0-36.0); Mean Corpuscular Volume 81.8 fL (80.0-100.0); Mean Platelet Volume 9.4 fL (9.4-12.3); Platelet Count 140 K/uL (130-400); RDW Coefficient of Variation 14.7 % (11.5-14.5); RDW Standard Deviation 43.2 fL (36.4-46.3); Red Blood Count 4.07 M/uL (3.93-5.22)
--- NOTE | 2022-02-16 09:52 | Obstetrical Progress Note ---
Date of Service February 16, 2022 Assessment & Plan Admission and Anticipated Discharge Date Admission Date: February 14, 2022 Subjective Patient is seen and examined. She feels well, no complaints. Ambulating without dizziness Voiding without difficulty Tolerating regular diet with out N&V Bleeding is minimal No fever/ chills/ CP/ SOB/ N&V/ Leg pain Breast feeding without problems Vital Signs Temp Pulse Resp BP Pulse Ox O2 Del Method 02/16/22 08:45 36.9 C 73 18 134/81 Room Air 02/16/22 03:17 36.5 C 77 18 119/78 97 Room Air 02/16/22 00:12 36.8 C 69 18 131/86 98 Room Air Lab Results 02/14/22 02/14/22 02/14/22 Range/Units 13:50 15:04 15:04 WBC 7.07 (4.8-10.8) K/ul RBC 3.93 (3.93-5.22) M/uL Hgb 11.1 L (12.0-16.0) g/dl Hct 32.3 L (34.1-44.9) % MCV 82.2 (80.0-100.0) fL MCH 28.2 (25.0-34.0) pg MCHC 34.4 (32.0-36.0) g/dL RDW Std Deviation 43.1 (36.4-46.3) fL RDW Coeff of Grabiel 14.6 H (11.5-14.5) % Plt Count 143 (130-400) K/uL MPV 9.5 (9.4-12.3) fL Sodium 136 (136-145) mmol/L Potassium 3.7 (3.5-5.1) mmol/L Chloride 108 H (98-107) mmol/L Carbon Dioxide 21 (21-32) mmol/L Anion Gap 7 (3-11) BUN 6 (6-23) mg/dl Creatinine 0.47 L (0.6-1.2) mg/dl Est Cr Clr Drug Dosing Not Reportable Est GFR ( Amer) 149.4 ml/min Est GFR (Non-Af Amer) 128.9 ml/min BUN/Creatinine Ratio 12.8 (10-20) Glucose 118 H (70-99(Fasting)) mg/dl POC Glucose (70-99) mg/dl Calcium 8.4 L (8.5-10.1) mg/dl Total Bilirubin 0.3 (0.2-1.0) mg/dl AST 11 L (13-39) U/L ALT 8 (7-52) U/L Alkaline Phosphatase 111 H (34-104) U/L Total Protein 6.0 (6.0-8.3) gm/dl Albumin 3.4 (3.4-5.0) gm/dl Globulin 2.6 (2.5-4.0) gm/dl Albumin/Globulin Ratio 1.3 (0.9-2) SARS-CoV-2, RNA, NAAT NEGATIVE (NEGATIVE) Blood Type Antibody Screen 02/14/22 02/14/22 02/14/22 Range/Units 15:08 17:32 21:29 WBC (4.8-10.8) K/ul RBC (3.93-5.22) M/uL Hgb (12.0-16.0) g/dl Hct (34.1-44.9) % MCV (80.0-100.0) fL MCH (25.0-34.0) pg MCHC (32.0-36.0) g/dL RDW Std Deviation (36.4-46.3) fL RDW Coeff of Grabiel (11.5-14.5) % Plt Count (130-400) K/uL MPV (9.4-12.3) fL Sodium (136-145) mmol/L Potassium (3.5-5.1) mmol/L Chloride (98-107) mmol/L Carbon Dioxide (21-32) mmol/L Anion Gap (3-11) BUN (6-23) mg/dl Creatinine (0.6-1.2) mg/dl Est Cr Clr Drug Dosing Est GFR ( Amer) ml/min Est GFR (Non-Af Amer) ml/min BUN/Creatinine Ratio (10-20) Glucose (70-99(Fasting)) mg/dl POC Glucose 79 77 (70-99) mg/dl Calcium (8.5-10.1) mg/dl Total Bilirubin (0.2-1.0) mg/dl AST (13-39) U/L ALT (7-52) U/L Alkaline Phosphatase (34-104) U/L Total Protein (6.0-8.3) gm/dl Albumin (3.4-5.0) gm/dl Globulin (2.5-4.0) gm/dl Albumin/Globulin Ratio (0.9-2) SARS-CoV-2, RNA, NAAT (NEGATIVE) Blood Type O Positive Antibody Screen NEGATIVE 02/15/22 02/15/22 02/15/22 Range/Units 00:19 05:02 09:03 WBC (4.8-10.8) K/ul RBC (3.93-5.22) M/uL Hgb (12.0-16.0) g/dl Hct (34.1-44.9) % MCV (80.0-100.0) fL MCH (25.0-34.0) pg MCHC (32.0-36.0) g/dL RDW Std Deviation (36.4-46.3) fL RDW Coeff of Grabiel (11.5-14.5) % Plt Count (130-400) K/uL MPV (9.4-12.3) fL Sodium (136-145) mmol/L Potassium (3.5-5.1) mmol/L Chloride (98-107) mmol/L Carbon Dioxide (21-32) mmol/L Anion Gap (3-11) BUN (6-23) mg/dl Creatinine (0.6-1.2) mg/dl Est Cr Clr Drug Dosing Est GFR ( Amer) ml/min Est GFR (Non-Af Amer) ml/min BUN/Creatinine Ratio (10-20) Glucose (70-99(Fasting)) mg/dl POC Glucose 76 77 123 H (70-99) mg/dl Calcium (8.5-10.1) mg/dl Total Bilirubin (0.2-1.0) mg/dl AST (13-39) U/L ALT (7-52) U/L Alkaline Phosphatase (34-104) U/L Total Protein (6.0-8.3) gm/dl Albumin (3.4-5.0) gm/dl Globulin (2.5-4.0) gm/dl Albumin/Globulin Ratio (0.9-2) SARS-CoV-2, RNA, NAAT (NEGATIVE) Blood Type Antibody Screen 01/08/0202/15/22 02/15/22 Range/Units 11:52 13:06 14:03 WBC (4.8-10.8) K/ul RBC (3.93-5.22) M/uL Hgb (12.0-16.0) g/dl Hct (34.1-44.9) % MCV (80.0-100.0) fL MCH (25.0-34.0) pg MCHC (32.0-36.0) g/dL RDW Std Deviation (36.4-46.3) fL RDW Coeff of Grabiel (11.5-14.5) % Plt Count (130-400) K/uL MPV (9.4-12.3) fL Sodium (136-145) mmol/L Potassium (3.5-5.1) mmol/L Chloride (98-107) mmol/L Carbon Dioxide (21-32) mmol/L Anion Gap (3-11) BUN (6-23) mg/dl Creatinine (0.6-1.2) mg/dl Est Cr Clr Drug Dosing Est GFR ( Amer) ml/min Est GFR (Non-Af Amer) ml/min BUN/Creatinine Ratio (10-20) Glucose (70-99(Fasting)) mg/dl POC Glucose 68 L* 110 H 119 H (70-99) mg/dl Calcium (8.5-10.1) mg/dl Total Bilirubin (0.2-1.0) mg/dl AST (13-39) U/L ALT (7-52) U/L Alkaline Phosphatase (34-104) U/L Total Protein (6.0-8.3) gm/dl Albumin (3.4-5.0) gm/dl Globulin (2.5-4.0) gm/dl Albumin/Globulin Ratio (0.9-2) SARS-CoV-2, RNA, NAAT (NEGATIVE) Blood Type Antibody Screen 02/15/22 02/16/22 Range/Units 15:02 09:13 WBC 9.40 (4.8-10.8) K/ul RBC 4.07 (3.93-5.22) M/uL Hgb 11.4 L (12.0-16.0) g/dl Hct 33.3 L (34.1-44.9) % MCV 81.8 (80.0-100.0) fL MCH 28.0 (25.0-34.0) pg MCHC 34.2 (32.0-36.0) g/dL RDW Std Deviation 43.2 (36.4-46.3) fL RDW Coeff of Grabiel 14.7 H (11.5-14.5) % Plt Count 140 (130-400) K/uL MPV 9.4 (9.4-12.3) fL Sodium (136-145) mmol/L Potassium (3.5-5.1) mmol/L Chloride (98-107) mmol/L Carbon Dioxide (21-32) mmol/L Anion Gap (3-11) BUN (6-23) mg/dl Creatinine (0.6-1.2) mg/dl Est Cr Clr Drug Dosing Est GFR ( Amer) ml/min Est GFR (Non-Af Amer) ml/min BUN/Creatinine Ratio (10-20) Glucose (70-99(Fasting)) mg/dl POC Glucose 111 H (70-99) mg/dl Calcium (8.5-10.1) mg/dl Total Bilirubin (0.2-1.0) mg/dl AST (13-39) U/L ALT (7-52) U/L Alkaline Phosphatase (34-104) U/L Total Protein (6.0-8.3) gm/dl Albumin (3.4-5.0) gm/dl Globulin (2.5-4.0) gm/dl Albumin/Globulin Ratio (0.9-2) SARS-CoV-2, RNA, NAAT (NEGATIVE) Blood Type Antibody Screen PE: General: Alert, orientedx3, NAD Abd: soft, NT, fundus firm, below Umbilicus Perineum intact, Lochia rubra minimal Ext; NT, no edema AP: 36 yo s/p , ppd# 1 VSS Afebrile doing well Continue routine care All questions were answered D/C home tomorrow Results & Data ([facility]) Vital Signs (Past 12 Hours) Vital Signs Temp Pulse Resp BP Pulse Ox O2 Del Method 02/16/22 08:45 36.9 C 73 18 134/81 Room Air 02/16/22 03:17 36.5 C 77 18 119/78 97 Room Air 02/16/22 00:12 36.8 C 69 18 131/86 98 Room Air
[2022-02-16] MEDS ORDERED: bisacodyL 5 MG TABEC PO SCH (20:00)
[2022-02-17 07:09] LABS: Hematocrit (blood only) 31.5 % (34.1-44.9); Hemoglobin 10.7 g/dl (12.0-16.0)
[2022-02-17] MEDS: PRENATAL VITAMIN 1 TAB PO SCH (08:11)
[2022-02-17] MEDS: DOCUSATE SODIUM 100 MG CAP PO SCH (08:11)
--- NOTE | 2022-03-06 00:51 | Delivery Summary ---
DATE OF DELIVERY: 02/15/2022 The patient delivered a live infant in occiput anterior presentation at 1350 hours. Delivery was unr emarkable. The 's weight and Apgars are in the pediatric record. Cord blood, cord gases obtai alexa. Placenta spontaneously delivered. Inspection of the placenta shows normal-looking placenta wit h 3-vessel cord. Inspection of the perineum was unremarkable. Second-degree laceration was repaired with 2-0 Vicryl i n layers. Rectal exam post-repair showed good sphincter tone. No sutures are palpated in the rectum . Estimated blood loss 450 mL. The patient and baby are doing well in recovery. All instruments were r emoved from the vagina and accounted for x2 including sponges and retractors. Job ID: [id number]
== END 2022-02-17 10:20 | disposition home or self-care (01) | DRG 807 ==
LOC: 4S3 13:51 → 4S1 14:00 → 4E2 02-15 18:49